=== PATIENT | male | born 1980 | race American Indian/Alaskan Native ===

== ENCOUNTER 2017-03-28 14:15 | Emergency (ER) | payer SELFPAY ==
[~2017-03-28] VITALS: Ht 172.7 cm; Wt 69.0 kg
[~2017-03-28 14:15] MED LIST: ASPI325T80 PO; CYCL-259 PO; GABA300C10 PO; HYDR-3144 PO; METH750T2 PO; NABU500T PO; SUMA50TA3 PO; TIZA4TAB PO; TOPI200T6 PO
[2017-03-28 14:24] VITALS: BP 129/74
== END 2017-03-28 14:57 | disposition home or self-care (01) ==
LOC: ED 14:51
DX: S01.01XD Laceration without foreign body of scalp, subsequent encounter (principal)
CPT/HCPCS: 99281